=== PATIENT | female | born 1955 | race Caucasian/White ===

== ENCOUNTER → 2021-01-13 | Outpatient (CLI) | payer MEDICARE | END | disposition home or self-care (01) | LOC: RAD 12:40 | PROVIDERS: ATTEND Family Medicine | DX: M47.812 Spondylosis without myelopathy or radiculopathy, cervical region (principal); M25.511 Pain in right shoulder ==

== ENCOUNTER 2021-09-21 10:55 | Emergency (ER) | payer MEDICARE ==
[~2021-09-21] VITALS: Wt 59.0 kg
[2021-09-21] MEDS ORDERED: HYDROCHLOROTHIA25 M1 PO (11:16)
[2021-09-21] MEDS ORDERED: PERCOCET 5-3251 EACH PO (14:04)
[2021-09-21] MEDS ORDERED: MEDROL DOSEPAK4 MG PO (14:04)
== END 2021-09-21 14:23 | disposition home or self-care (01) ==
LOC: ED 10:55
DX: S83.92XA Sprain of unspecified site of left knee, initial encounter (principal); Z79.899 Other long term (current) drug therapy; X58.XXXA Exposure to other specified factors, initial encounter; Y93.89 Activity, other specified; Y92.89 Other specified places as the place of occurrence of the external cause; Y99.8 Other external cause status